=== PATIENT | male | born 1935 | race Hispanic/Latino ===

== ENCOUNTER 2018-01-18 04:53 | Emergency (ER) | payer MEDICARE, MEDICAID ==
--- NOTE | 2018-01-18 07:19 | CT ---
PRELIMINARY REPORT/[facility]/EMERGENTY AFTER-HOURS PROCEDURE EXAM: CT Head Without Intravenous Contrast EXAM DATE/TIME: Exam ordered 01/18/2018 5:15 AM CLINICAL HISTORY: 83 years old, male; Injury or trauma; Fall; Initial encounter; Blunt trauma (contusions or hematomas) ; Without loss of consciousness; Injury details: N. H. Pt fell from chair hit head TECHNIQUE: Axial computed tomography images of the head/brain without intravenous contrast. All CT scans at this facility use one or more dose reduction techniques, viz.: automated exposure control; ma/kV adjustment per patient size (including targeted exams where dose is matched to indication; i.e. head) ; or iterative reconstruction technique. COMPARISON: No relevant prior studies available. FINDINGS: Brain: Normal. No hemorrhage. No significant white matter disease. No edema. Ventricles: Normal. No ventriculomegaly. Bones/joints: Normal. No acute fracture. Soft tissues: Normal. Sinuses: Unremarkable as visualized. No acute sinusitis. Mastoid air cells: Unremarkable as visualized. No mastoid effusion. IMPRESSION: No acute intracranial hemorrhage. Thank you for allowing us to participate in the care of your patient. Dictated and Authenticated by: Meño Malik MD 01/18/2018 5:42 AM Central Time ([place] & [place]) CT OF THE BRAIN WITHOUT CONTRAST: Date: 01/18/[address] was done following trauma. Comparison was made with the 10/29/17 study from [facility]. FINDINGS: There has been no adverse interval change. The ventricles are normal in size for age and atrophy. No intracranial bleeding or extra-axial hematoma seen. No sign of stroke, mass, or edema. The skull appe ars intact. There is no air fluid in the sphenoid sinus and the mastoid air cells are clear. IMPRESSION: No acute intracranial findings. REPORT IN AGREEMENT WITH PRELIMINARY REPORT BY [facility]. POS: HOME
--- NOTE | 2018-01-18 21:54 | CT ---
CT OF THE CERVICAL SPINE WITHOUT CONTRAST 01/18/[address] of the cervical spine was done following trauma. Axial slices were acquired, then coronal a nd sagittal reconstructions were done. No fracture, dislocation, or acute bony change was seen. There is straightening of the cervical spine which might be due to muscle spasm but could also be due to the extensive arthritic change present i n this patient. The C1 to dens distance is normal and the soft tissues are normal in thickness. Findi ngs my level follow: C1-C2: No acute findings. C2-C3: Small disc osteophyte complex present. Mild right foraminal narrowing. C3-C4: Prominent disc space narrowing. Severe bilateral foraminal stenosis, worse on the left than th e right. A posterior osteophyte is seen projecting from the upper part of C4 that impinges upon the t hecal sac. There is extensive facet arthritis on the left side at this level. C4-C5: Bilateral foraminal narrowing. C5-C6: Another large disc osteophyte complex is present centrally with some effacement of the thecal sac at this level. There is moderate right foraminal stenosis and mild left foraminal stenosis. C6-C7: Small concentric disc osteophyte complex with moderate bilateral foraminal narrowing. C7-T1: Extensive arthritic changes but no acute findings. T1-T2: Narrowed disc space but no evidence of gross stenosis. 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 No acute bony changes. POS: HOME
== END 2018-01-18 06:53 ==
LOC: BURERS 04:53
DX: S00.83XA Contusion of other part of head, initial encounter (principal); D64.9 Anemia, unspecified; I11.0 Hypertensive heart disease with heart failure; I50.9 Heart failure, unspecified; E11.9 Type 2 diabetes mellitus without complications; F03.90 Unspecified dementia, unspecified severity, without behavioral disturbance, psychotic disturbance, mood disturbance, and anxiety; E78.5 Hyperlipidemia, unspecified; W06.XXXA Fall from bed, initial encounter
CPT/HCPCS: 36416; 70450; 72125

== ENCOUNTER 2018-06-15 05:32 | Emergency (ER) | payer MEDICARE, OTHER ==
--- NOTE | 2018-06-15 10:13 | CT ---
PRELIMINARY REPORT/[facility]/EMERGENTY AFTER-HOURS PROCEDURE CT Head Without Intravenous Contrast CLINICAL HISTORY: 83 years old, male; Injury or trauma; Fall; Injury details: Fall, lac to back of head TECHNIQUE: Axial computed tomography images of the head/brain without intravenous contrast. COMPARISON: No relevant prior studies available. FINDINGS: No definite acute skull fracture. Included paranasal sinuses are essentially clear. No acute intracranial hemorrhage or mass effect. Ventricle size is normal for age. There is mild, relatively symmetrical decreased attenuation in the periventricular white matter, like ly from microvascular disease. No definite acute infarct by CT. IMPRESSION: No acute intracranial bleed or mass effect. Changes of microvascular disease. Thank you for allowing us to participate in the care of your patient. Dictated and Authenticated by: Meño Barroso MD 06/15/2018 6:59 AM Central Time ([place] & [place]) FINAL REPORT CT BRAIN WITHOUT CONTRAST: Date: 06-15-18 Comparison: 04-04-18 FINDINGS: The calvarium appears intact with no sign of fracture. There is no air fluid level in the sphenoid si nus. The ventricles are normal in size for age and atrophy and show no shift. No intracranial bleedin g or extraaxial hematoma was seen. There is sign of acute stroke, mass, or edema. There is some minim al white matter hypo lucency, typical of chronic ischemic change. For age, it is not very significant . IMPRESSION: 1. No acute intracranial findings. 2. Report in agreement with preliminary reading by [facility]. POS: HOME
--- NOTE | 2018-06-15 10:19 | CT ---
PRELIMINARY REPORT/[facility]/EMERGENTY AFTER-HOURS PROCEDURE CT Head Without Intravenous Contrast CLINICAL HISTORY: 83 years old, male; Injury or trauma; Fall; Injury details: Fall, lac to back of head TECHNIQUE: Axial computed tomography images of the head/brain without intravenous contrast. COMPARISON: No relevant prior studies available. FINDINGS: No definite acute skull fracture. Included paranasal sinuses are essentially clear. No acute intracranial hemorrhage or mass effect. Ventricle size is normal for age. There is mild, relatively symmetrical decreased attenuation in the periventricular white matter, like ly from microvascular disease. No definite acute infarct by CT. IMPRESSION: No acute intracranial bleed or mass effect. Changes of microvascular disease. Thank you for allowing us to participate in the care of your patient. Dictated and Authenticated by: Meño Barroso MD 06/15/2018 6:59 AM Central Time ([place] & [place]) CT CERVICAL SPINE: Date: 06-15-[address] of the cervical spine was performed following trauma. Axial slices were acquired and then c oronal and sagittal reconstructions were done. FINDINGS: There is reversal of the normal cervical lordosis which may be due to spasm. While the soft tissues a re thicker than normal in the front of the C6 level, this is probably due in part to the patient havi ng his neck flexed. There is no indira dislocation. Disc spaces are narrowed at all level below C3. Fi ndings by level follow: C1-2: No acute findings. C2-3: No acute findings. Mild facet arthritis, right. C3-4: Mild right foraminal stenosis and moderate to severe left foraminal stenoses due to osteophytes . Significant facet arthritis near the C2-3 articulation. C4-5: Severe left facet arthritis. Moderate left foraminal narrowing due to osteophytes. C5-6: Mild right foraminal narrowing. Prominent central osteophytes that somewhat effaces the thecal sac. C6-7: Mild to moderate right foraminal stenosis and moderate to severe left foraminal stenosis due to osteophytes. C7-T1: No acute findings. T1-2: No acute findings. T2-3: No acute findings. The soft tissues of the neck showed no worrisome swelling. No gross neck masses were indicated. The l leti apices are clear. IMPRESSION: 1. Extensive degenerative change and reversal of the normal cervical lordosis. No fracture seen. 2. Report in agreement with the preliminary reading by [facility]. POS: HOME
--- NOTE | 2018-06-15 10:33 | RAD ---
PELVIS ONE VIEW: Date: 06-15-18 FINDINGS: No gross fracture was identified, though sensitivity to subtle fractures would be low in this patient . The hips seem symmetrical. Hip joint spaces are equal. The symphysis shows no widening or off set a nd the pubic rings are intact. The SI joints are symmetrical. IMPRESSION: No acute finding. POS: HOME
--- NOTE | 2018-06-15 10:34 | RAD ---
PORTABLE CHEST: Date: 06-15-18 An AP portable film at 0606 is compared with a 06-09-18 study. FINDINGS: There has been little change in the interval. Mild cardiomegaly is about the same and there is no con gestive change. A sliver of calcification along the left heart border is probably in the pericardium and was seen before. The lungs are clear. IMPRESSION: No acute findings. POS: HOME
== END 2018-06-15 08:47 ==
LOC: BURERS 05:32
DX: S01.01XA Laceration without foreign body of scalp, initial encounter (principal); D64.9 Anemia, unspecified; E11.9 Type 2 diabetes mellitus without complications; E78.5 Hyperlipidemia, unspecified; F32.9 Major depressive disorder, single episode, unspecified; F03.90 Unspecified dementia, unspecified severity, without behavioral disturbance, psychotic disturbance, mood disturbance, and anxiety; I11.0 Hypertensive heart disease with heart failure; I50.9 Heart failure, unspecified; Z79.899 Other long term (current) drug therapy; Z79.4 Long term (current) use of insulin; Z99.2 Dependence on renal dialysis; W06.XXXA Fall from bed, initial encounter
CPT/HCPCS: 12001; 70450; 71045; 72125; 72170

== ENCOUNTER 2019-06-29 18:48 | Outpatient (CLI) | payer MEDICARE, MEDICAID ==
--- NOTE | 2019-06-29 23:21 | CT ---
CT OF THE FACIAL BONES 06/29/[address] was done to encompass both the face and the brain in this patient with recent trauma . Axial slices were acquired followed by multiplanar reconstructions. CT of the brain shows normal sized ventricles for age and atrophy. There is no ventricular shift. Th ere was no sign of acute stroke, mass, or edema. No intracranial bleeding or extra-axial hematoma was seen. A small dark area alongside or in the anterior falx cerebri shows to be fat density and so thi s is not current concern. The skull appears intact. No skull fractures were seen. CT of the facial ones showed no fractures. The nasal bones, zygomatic arches, and orbital rims all ap pear intact. The nasal septum is midline. The surrounding paranasal sinuses are clear but there is a small mucous retention cyst in the floor of the right maxillary sinus. The patient was scanned with h is mouth fairly wide open which explains both mandibular condyles being translated forward slightly, but symmetrically so. The mandible appears intact with no sign of fracture. The patient's cervical spine was also included in the scan. There are diffuse and severe degenerative changes throughout with disc space narrowing particularly prominent at C3-C4. There are large osteop hytes anteriorly and posteriorly at this level. The AP diameter of the spinal canal at the C4 level i s 6 mm which is rather tight due to osteophytes. Multilevel foraminal stenosis is present though it i s worst at C3-C4. No fractures were appreciated within the area scanned, though C7 was seen incomplet rowena. No acute soft tissue abnormalities of the neck were appreciated. IMPRESSION: 1. No acute intracranial findings. 2. No evidence of facial or mandibular fracture. 3. Small mucous retention cyst in the floor of the right maxillary sinus. 4. Extensive severe degenerative changes of the cervical spine, worst around the C3-C4 level. POS: HOME
== END 2019-06-29 18:49 | disposition home or self-care (01) ==
LOC: BURCT 18:48
PROVIDERS: ATTEND Family Medicine
DX: R68.84 Jaw pain (principal); J34.1 Cyst and mucocele of nose and nasal sinus; M47.812 Spondylosis without myelopathy or radiculopathy, cervical region
CPT/HCPCS: 70486